=== PATIENT | male | born 2000 | race American Indian/Alaskan Native ===

== ENCOUNTER 2021-09-04 04:02 | Emergency (ER) | payer OTHER ==
[2021-09-04] MEDS ORDERED: KETOROLAC 30 MG/1 ML INJ IV ONE (06:33)
[2021-09-04] MEDS ORDERED: TETANUS,DIPH,PERTUSS(ACELL) VACCINE 0.5 ML SYRINGE IM ONE (06:33)
--- NOTE | 2021-09-04 07:12 | XRay Report ---
CHEST WITH RIGHT RIBS 4 VIEWS 0655 INDICATION: right sided chest pain COMPARISON: None available. FINDINGS: Lung servin are clear. No pneumothorax. No mediastinal widening. No pleural effusions. No f racture seen. Signer Name: Jayce Dejesus MD Signed: 09/04/2021 7:07 AM Workstation Name: [id number]
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
[2021-09-04 07:54] LABS: Basophils % (Auto) 0.3 % (0.0-1.8); Eosinophils % (Auto) 0.1 % (0.0-4.3); Hematocrit 42.3 % (35.5-45.6); Hemoglobin 13.5 gm/dl (11.8-15.2); Lymphocytes # (Auto) 1.5 K/mm3 (1.2-5.4); Lymphocytes % (Auto) 13.6 % (13.4-35.0); Mean Corpuscular HGB Conc 32 % (32-34); Mean Corpuscular Volume 73 fl (84-94); Monocytes % (Auto) 9.2 % (0.0-7.3); Platelet Count 155 K/mm3 (140-440); Red Blood Count 5.82 M/mm3 (3.65-5.03); Red Cell Distribution Width 13.1 % (13.2-15.2)
[2021-09-04 08:19] LABS: Alanine Aminotransferase 25 units/L (7-56); Albumin 4.2 g/dL (3.9-5); BUN/Creatinine Ratio 17; Blood Urea Nitrogen 15 mg/dL (9-20); Calcium 9.1 mg/dL (8.4-10.2); Hemolysis Index 64
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
[2021-09-04 10:56] VITALS: BP 105/60
== END 2021-09-04 10:56 ==
LOC: ED 04:02
DX: S00.83XA Contusion of other part of head, initial encounter (principal); S30.1XXA Contusion of abdominal wall, initial encounter; Y08.89XA Assault by other specified means, initial encounter; Y93.89 Activity, other specified; Y92.89 Other specified places as the place of occurrence of the external cause; Y99.8 Other external cause status
CPT/HCPCS: 36415; 70450; 70486; 71101; 72125; 74177; 80053; 85025; 90471; 90715; 96374; 99285; J1885; Q9967